=== PATIENT | female | born 1970 | race Asian ===

== ENCOUNTER → 2018-10-03 17:03 | Outpatient (CLI) | payer BC, SELFPAY ==
--- NOTE | 2018-10-03 17:13 | DI.MRI.S_ITS ---
PROCEDURE: MR KNEE RT WO CON INDICATIONS: DERANGEMENT OF RIGHT KNEE TECHNIQUE: Noncontrast sagittal PD fast spin echo and T2 fast spin echo with fat saturation, sagittal 3-D FLASH with fat saturation; coronal T1 spin echo and PD fast spin echo with fat saturation, and axial PD fast spin echo with fat saturation through the knee. COMPARISON: None. FINDINGS: Image quality: Excellent. Menisci: There is an oblique tear of the posterior horn of the medial meniscus which extends to the inferior articular surface. There is a small, approximately 2 mm in diameter para-meniscal cyst associated with the medial meniscus tear. The lateral meniscus demonstrates normal morphology and internal signal. The meniscal root ligaments appear intact. Cruciate ligaments: The anterior and posterior cruciate ligaments appear intact. Medial structures: The medial collateral ligament appears intact. The posterior oblique ligament, semimembranosus tendon insertions, oblique popliteal ligament, and meniscocapsular junction appear intact. Visualized portions of the pes anserinus tendons appear normal. No abnormal bursal fluid. Lateral structures: The lateral collateral ligament, long and short heads of the biceps femoris tendon appear intact. The popliteus tendon appears normal; the popliteofibular ligament appears intact. The posterosuperior and anteroinferior popliteomeniscal fascicles appear intact. The arcuate and fabellofibular ligaments appear intact, on either side of the lateral inferior geniculate artery. Iliotibial band appears normal. Anterior structures: The quadriceps and patellar tendons appear intact. Patellar alignment is normal. No femoral trochlear dysplasia or ventral trochlear prominence. No edema in the infrapatellar fat pad. Bones and cartilage: No bone marrow contusions or fractures. The cartilage of the medial and lateral femorotibial compartments appears normal in thickness. There is thinning and fissuring of the articular cartilage of the trochlea with reactive changes in the adjacent subchondral marrow. Joint space: There is a trace joint effusion. No Matson's cyst. Normal appearing synovial plicae are incidentally noted. IMPRESSION: 1. Tear of the posterior horn of the medial meniscus. 2. Trochlear chondromalacia. Dictated by: Lisa Herndon MD, PhD on 10/04/2018 at 12:09 Approved by: Lisa Herndon MD, PhD on 10/05/2018 at 15:41
== END ==
PROVIDERS: Visit Provider Family Medicine
DX: S83.241A Other tear of medial meniscus, current injury, right knee, initial encounter (principal); M94.261 Chondromalacia, right knee
CPT/HCPCS: 73721

== ENCOUNTER → 2020-02-15 13:57 | Outpatient (CLI) | payer OTHER, SELFPAY ==
--- NOTE | 2020-02-15 | DI.RAD.S_ITS ---
PROCEDURE: XR CERVICAL SPINE 4V OR 5V INDICATIONS: cervical strain, tension headache TECHNIQUE: 5 views of the cervical spine acquired. COMPARISON: None. FINDINGS: Bones: No fractures or dislocations to the C7 level. Oblique images demonstrate no bony foraminal stenoses. Multilevel degenerative endplate sclerosis and spurring. Diffuse facet arthropathy. Mild narrowing of the C5-C6 disc space. Mild left C5-C6 bony foraminal narrowing. Mild to moderate C5-C6 and C6-C7 bony foraminal narrowing Soft tissues: No prevertebral soft tissue swelling. IMPRESSION: Mild cervical spondylosis and facet arthropathy as above Dictated by: Tariq Hunter M.D. on 02/15/2020 at 16:00 Approved by: Tariq Hunter M.D. on 02/15/2020 at 16:02
== END ==
PROVIDERS: Referring Provider Family Medicine; Visit Provider Family Medicine
DX: G44.201 Tension-type headache, unspecified, intractable (principal); S13.4XXA Sprain of ligaments of cervical spine, initial encounter; M47.812 Spondylosis without myelopathy or radiculopathy, cervical region; M48.02 Spinal stenosis, cervical region
CPT/HCPCS: 72050

== ENCOUNTER → 2020-05-01 13:05 | Outpatient (CLI) | payer OTHER, SELFPAY ==
--- NOTE | 2020-05-01 | DI.MRI.S_ITS ---
PROCEDURE: MR SHOULDER RT WO CON INDICATIONS: Adhesive capsulitis of right shoulder TECHNIQUE: Noncontrast oblique coronal T2 fast spin echo with fat saturation, oblique sagittal T1 spin echo and T2 fast spin echo with fat saturation, axial T1 spin echo and T2 fast spin echo with fat saturation through the shoulder. COMPARISON: None. FINDINGS: Image quality: Excellent. Rotator cuff: Tendinosis and low-grade articular and bursal surface partial thickness tear involving distal supraspinatus is seen at its insertion on the humeral head extending to musculotendinous junction. Distal infraspinatus and subscapularis tendinosis is seen. No full-thickness rotator cuff tendon rupture. Sagittal images demonstrate no significant muscle atrophy. Bones and bursae: No bone marrow contusions or fractures. Mild to moderate acromioclavicular joint osteoarthritic changes are seen. No pathologic subacromial-subdeltoid or subcoracoid bursal fluid is present. Capsule and soft tissues: In the absence of intra-articular contrast, focal superior anterior labral tear at 12 to 1 o'clock position is seen. The glenohumeral ligaments appear intact. The long head of the biceps tendon demonstrates normal location and morphology. The rotator interval appears normal, without fibrosis. The coracohumeral ligament is normal in thickness. IMPRESSION: 1. Tendinosis and low-grade articular and bursal surface partial thickness tear involving distal supraspinatus extending to musculotendinous junction. No full-thickness rotator cuff tendon rupture. Distal infraspinatus and subscapularis tendinosis. 2. Mild to moderate acromioclavicular joint osteoarthritis. 3. Suggestion of focal superior anterior labral tear at 12 to 1 o'clock position. Dictated by: Shiv Herbert M.D. on 05/01/2020 at 13:58 Approved by: Shiv Herbert M.D. on 05/01/2020 at 14:21
== END ==
PROVIDERS: PCP Family Medicine; Referring Provider Orthopaedic Surgery; Visit Provider Orthopaedic Surgery
DX: M75.01 Adhesive capsulitis of right shoulder (principal); M75.111 Incomplete rotator cuff tear or rupture of right shoulder, not specified as traumatic; M19.011 Primary osteoarthritis, right shoulder
CPT/HCPCS: 73221

== ENCOUNTER → 2023-01-19 12:53 | Outpatient (CLI) | payer OTHER, SELFPAY ==
--- NOTE | 2023-01-19 | DI.RAD.S_ITS ---
PROCEDURE: XR CHEST 2V INDICATIONS: COUGH TECHNIQUE: 2 views of the chest were acquired. COMPARISON: None. FINDINGS: Surgical changes and devices: None. Lungs and pleura: Lungs are clear. No pleural effusions or pneumothorax. Mediastinum: Mediastinal contours are normal. Heart size is normal. Bones and chest wall: No suspicious bony abnormalities. Soft tissues appear unremarkable. IMPRESSION: No acute radiographic abnormality. Dictated by: Kt Bhakta M.D. on 01/19/2023 at 15:06 Approved by: Kt Bhakta M.D. on 01/19/2023 at 15:07
== END ==
PROVIDERS: PCP Family Medicine; Referring Provider Family Medicine; Visit Provider Family Medicine
DX: R05.9 Cough, unspecified (principal)
CPT/HCPCS: 71046

== ENCOUNTER → 2025-01-12 10:49 | Outpatient (CLI) | payer OTHER, SELFPAY ==
--- NOTE | 2025-01-12 10:52 | DI.MRI.S_ITS ---
PROCEDURE: MR SHOULDER RT WO CON INDICATIONS: adhesive capsulitis TECHNIQUE: Noncontrast oblique coronal T2 fast spin echo with fat saturation, oblique sagittal T1 spin echo and T2 fast spin echo with fat saturation, axial T1 spin echo and T2 fast spin echo with fat saturation through the shoulder. COMPARISON: [facility] MR, MR SHOULDER RIGHT WITHOUT CONTRAST, 04/20/2023, 16:43. [facility], MR, MR SHOULDER RT WO CON, 05/01/2020, 13:27. FINDINGS: Image quality: Excellent. Rotator cuff: Low-grade partial tearing at the supraspinatus tendon insertion, likely involving the articular surface, which does not appear significantly changed in extent when compared to the MRI from 04/20/2023. Mild supraspinatus and infraspinatus tendinosis. The teres minor and subscapularis tendons are intact. No significant rotator cuff muscle atrophy. Bones and bursae: No acute trabecular bone injury or fracture. No focal glenohumeral cartilage defect. [id number] degenerative changes at the acromioclavicular joint. Small amount of fluid is seen in the subacromial/subdeltoid bursa. No significant glenohumeral effusion. Capsule and soft tissues: Chronic nondisplaced tearing at the superior to posterior superior labrum. Proximal biceps long head tendon demonstrates mild tendinosis. There is partial effacement of fat signal in the rotator interval. Anterior band of the inferior glenohumeral ligament appears mildly thickened IMPRESSION: 1. Low-grade partial likely articular sided tearing of the supraspinatus tendon at the distal insertion superimposed on mild supraspinatus and infraspinatus tendinosis. 2. Mild proximal biceps long head tendinosis. 3. Chronic nondisplaced tearing at the superior to posterior superior labrum. 4. [id number] acromioclavicular joint osteoarthrosis. 5. Small subacromial/subdeltoid bursal effusion or mild bursitis. 6. Partial effacement of the rotator interval fat and mild thickening of the inferior glenohumeral ligament are nonspecific, but can be seen in the setting of the clinical syndrome of adhesive capsulitis. Approved by: Alfa Mccarty M.D. on 01/14/2025 at 12:43
== END ==
PROVIDERS: PCP Family Medicine; Referring Provider Orthopaedic Surgery; Visit Provider Orthopaedic Surgery
DX: M75.01 Adhesive capsulitis of right shoulder (principal); M75.111 Incomplete rotator cuff tear or rupture of right shoulder, not specified as traumatic; M19.011 Primary osteoarthritis, right shoulder; S43.491A Other sprain of right shoulder joint, initial encounter
CPT/HCPCS: 73221

== ENCOUNTER → 2025-02-02 09:49 | Outpatient (CLI) | payer OTHER, SELFPAY ==
--- NOTE | 2025-02-02 09:50 | DI.MG.S_ITS ---
MM screening mammo BI: 02/02/2025. BI-RADS: 1 CLINICAL: 54-year old female for bilateral screening mammogram. Tyrer-Cuzick lifetime risk of 7.0%. No personal or first-degree family history of breast cancer. PRIOR EXAMS: None. This is a baseline mammogram. MAMMOGRAPHY TECHNIQUE: 2D and 3D (tomosynthesis) digital mammographic views obtained, with additional images as needed for full coverage. Current study was also evaluated with a Computer Aided Detection (CAD) system. DENSITY C. The breasts are heterogeneously dense, which may obscure small masses. MAMMOGRAPHY FINDINGS Bilateral: No suspicious mass, asymmetry, microcalcification, or other abnormality seen. IMPRESSION: * No evidence of malignancy. RECOMMENDATIONS Bilateral * Annual screening mammography. OVERALL ASSESSMENT CATEGORY BI-RADS-1: Negative. The [employer] recommends annual screening mammography beginning at age 40 for women with average risk of breast cancer. ELECTRONICALLY SIGNED: Guero Llanos M.D. on 02/04/2025 at 08:41:30 AM PT Interpreting Station ID: [id number]
== END ==
PROVIDERS: PCP Family Medicine; Referring Provider Family Medicine; Visit Provider Family Medicine
DX: Z12.31 Encounter for screening mammogram for malignant neoplasm of breast (principal); R92.333 Mammographic heterogeneous density, bilateral breasts
CPT/HCPCS: 77063; 77067